=== PATIENT | male | born 1995 | race Caucasian/White ===

== ENCOUNTER → 2016-05-28 | Day surgery (SDC) | payer BC ==
[~2016-05-28] VITALS: Ht 175.3 cm; Wt 67.0 kg
[~2016-05-28] MED LIST: BACITRACIN TOP OINT 15 GM TUBE ONE; BUPIVACAINE HCL PF 0.5% 30 ML VIAL ONE; CHLORHEXIDINE GLUCONATE 2 % 1 PACK (2 CLOTHS) TOPICAL PRN; INSULIN HUMAN REGULAR 1,000 UNITS/10 ML VIAL SQ PRN; LACTATED RINGER'S 1000 ML INJ 1,000 ML IV SCH; LACTATED RINGER'S 1000 ML IV PRN; LIDOCAINE HCL 2% 50 ML VIAL ONE; METOPROLOL TARTRATE 25 MG TAB PO PRN; MIDAZOLAM HCL 2 MG/2 ML VIAL ONE; NEOMYCIN/POLYMYXIN 1 ML G.U. IRRIGANT TOPICAL ONE; POVIDONE IODINE 5% (ANTISEPSIS KIT) 4 APPLICATIONS EACH NARE PRN; PROPOFOL 200 MG/20 ML AMP IV ONE; SODIUM CHLORID 0.9% 500 ML IV PRN
[2016-05-28 17:46] VITALS: BP 116/64; PULSE 80; RESP 17; TEMP 99; O2SAT 100
[2016-05-28 23:45] VITALS: BP 110/56; PULSE 56; RESP 12; TEMP 97.7; O2SAT 99
--- NOTE | 2016-06-03 11:30 | MP ---
cc: MICHELLE WOODS DATE OF SURGERY: 05/28/2016 PREOPERATIVE DIAGNOSIS Abscess, right ring finger. POSTOPERATIVE DIAGNOSIS Abscess, right ring finger. PROCEDURE 1. Incision and drainage abscess, right ring finger. 2. Irrigation and debridement flexor tendon sheath, right ring finger. SURGEON Dr. Michelle Woods ANESTHESIA General and local. TOURNIQUET TIME 20 minutes at 250 mmHg. SPECIMEN Cultures. INDICATION FOR PROCEDURE Jovan Rae is a pleasant 20-year-old right-hand dominant male who states that he believes he struck his right ring finger potentially on a sea urchin while on vacation in [place]. He noted an abscess but did not present for evaluation to my office until 05/28/2016. He was seen by urgent care and prescribed antibiotics several days earlier but did not take the antibiotics. At that time I recommended emergent irrigation and debridement of the abscess and he elected to proceed. The risks were explained which include but are not limited to sepsis, wound complications, infection, stiffness of the finger, need for additional surgeries, and he elected to proceed. DESCRIPTION OF PROCEDURE The patient was identified in the preoperative holding area and the correct extremity was marked. The patient was taken back to the operating room where anesthesia was induced. The right upper extremity was prepped and draped in a normal sterile fashion. The tourniquet was inflated to 250 mmHg for 20 minutes. A Miles incision was made over the area of the abscess over the level of the volar aspect of the middle phalanx. Upon making the incision there was obvious purulence which was sent for culture. Initially a small incision was made but then it was clear that the purulence extended along the flexor tendon sheath, so again this was extended in a Miles fashion. The flexor tendon sheath was irrigated with 3 liters of antibiotic saline. Then the skin was closed loosely with chromic after the tourniquet was released and hemostasis was obtained. The patient was placed into a soft dressing and his family was discussed to begin range of motion of the finger. The patient refused admission for IV antibiotics. He states that he will fill the antibiotics that were prescribed previously and we will call him with the culture results. He understands to follow-up immediately with any worsening symptoms. Otherwise, I will see him on Wednesday. MD BRIAN Barrera/ULYSSES /4:02 PM /11:14 AM MTDCharissa
== END | disposition home or self-care (01) ==
LOC: HSDC 16:56 → HSDI 17:02
PROVIDERS: ATTEND Orthopaedic Surgery
DX: L02.511 Cutaneous abscess of right hand (principal); M65.041 Abscess of tendon sheath, right hand; B95.61 Methicillin susceptible Staphylococcus aureus infection as the cause of diseases classified elsewhere
CPT/HCPCS: 00400; 10060; 11043; 86403; 87015; 87070; 87077; 87102; 87116; 87186; 87205; 87206; J2250; J3010